=== PATIENT | female | born 1985 | race Caucasian/White ===

== ENCOUNTER 2016-11-29 19:08 | Emergency (ER) | payer MEDICAID ==
[~2016-11-29] VITALS: Ht 157.5 cm; Wt 66.0 kg
[~2016-11-29 19:08] MED LIST: AMOX875T PO
[2016-11-29 19:10] VITALS: BP 101/69; PULSE 87; RESP 16; TEMP 98; O2SAT 100
[2016-11-29 20:39] LABS: BLOOD, URINE NEG (NEG); COMMENT (UR) CULT NOT INDICATED; CULTURE IF INDICATED CULT NOT INDICATED; GLUCOSE,URINE NEG (NEG); HYALINE CAST, URINE 1 /lpf (RARE); KETONE, URINE NEG (NEG); MUCUS URINE FEW /lpf (OCC); NITRITE,URINE NEG (NEG); PH, URINE 5.5 (5.0-8.5); SQUAMOUS EPITHELIAL CELL URINE 12 /hpf (0-5); URINE COLOR YELLOW (YELLW/STRAW)
[2016-11-30] MEDS ORDERED: HYDR-3533 PO (02:32)
== END 2016-11-29 20:30 | disposition left against medical advice (07) ==
LOC: NED 19:08
DX: K46.9 Unspecified abdominal hernia without obstruction or gangrene (principal)
CPT/HCPCS: 81001; 99281

== ENCOUNTER 2016-11-30 02:14 | Emergency (ER) | payer MEDICAID ==
[~2016-11-30] VITALS: Ht 157.5 cm; Wt 65.0 kg
[2016-11-30 02:18] VITALS: BP 110/68; PULSE 97; RESP 16; TEMP 98; O2SAT 99
[2016-11-30] MEDS ORDERED: HYDR-3533 PO (02:32)
--- NOTE | 2016-11-30 02:38 | PD ---
HPI Chief Complaint: Pain: Acute or Chronic Time Seen by Provider: 02:33 Travel History International Travel<30 days: No Contact w/Intl Traveler<30days: No Traveled to known affect area: No History of Present Illness HPI 31-year-old white female presents to emergency department with complaints of pain to her left posterior shoulder after having a skin cancer removed. She states that this was done yesterday. And she was only advised to take ibuprofen. She states the pain is severe. She also goes on the state that she has an umbilical hernia and it also causes pain. She denies any fever or chills. No nausea vomiting. She states that she has not had a change in her appetite. She states that the hernia comes in and out spontaneously. She has not seen her primary care doctor in some time now. [facility] Past Medical History Narrative Medical Umbilical hernia Diminished Hearing: No Hiatal Hernia: Yes Tetanus Vaccination: < 5 Years Influenza Vaccination: No ?: Not LMP: 10/29/2016 : 2 Para: 1 : 1 Past Surgical History Narrative Surgical Excision of skin cancer Other Surgery: Yes (MELENOMA REMOVED LEFT SHOULDER) Social History Alcohol Use: Yes (RARELY) Tobacco Use: Yes (1/3 PPD) Substance Use: No Allergies-Medications (Allergen,Severity, Reaction): Coded Allergies: Black Pepper (Verified Adverse Reaction, Severe, Rash AND VOMITING, 11/30/16 ) Reported Meds & Prescriptions Reported Meds & Active Scripts Active Lortab (Hydrocodone-Acetaminophen) 5-325 Mg Tab 1 Tab PO Q8HR PRN Review of Systems Except as stated in HPI: all other systems reviewed are Neg Physical Exam Narrative GENERAL: Well-developed, well-nourished in no acute distress. Nontoxic appearing. HEAD: Normocephalic, atraumatic. EYES: Pupils equal round and reactive. Extraocular motions intact. No scleral icterus. No injection or drainage. ENT: TMs clear without erythema. The external auditory canals clear. Nose: clear . Posterior pharynx is pink and moist. No tonsillar edema or exudate. Uvula midline. Airway patent. NECK: Trachea midline.Supple, nontender, moves head freely. No central bony tenderness or spasm. CARDIOVASCULAR: Regular rate and rhythm without murmurs, gallops, or rubs. RESPIRATORY: Clear to auscultation. Breath sounds equal bilaterally. No wheezes , rales, or rhonchi. GASTROINTESTINAL: Abdomen soft, non-tender, nondistended. No hepato-splenomegaly , or palpable masses. No guarding. Patient has a small reducible umbilical hernia. EXTREMITIES: No clubbing, cyanosis, or edema. No joint tenderness, effusion, or edema noted. BACK: Nontender without deformity or crepitance. No flank tenderness. Skin: Patient has a healing incision to the left posterior shoulder with sutures intact. There is no erythema, warmth or discharge. No edema. Tender to touch. Data Data Last Documented VS Vital Signs Date Time Temp Pulse Resp B/P Pulse Ox O2 Delivery O2 Flow Rate FiO2 11/30/16 02:18 98.0 97 16 110/68 99 Orders Acetamin-Hydrocod 325-5 Mg ([place] 5-325 (11/30/16 02:45) [facility] Medical Decision Making Medical Screen Exam Complete: Yes Emergency Medical Condition: Yes Medical Record Reviewed: Yes Differential Diagnosis MDM: High Differential diagnoses: Abscess, postop pain, cellulitis, umbilical hernia, inguinal hernia Narrative Course Patient's given Lortab 5 mg by mouth. Patient has a reducible umbilical hernia. Patient has postoperative pain. Her wound looks well. No signs of infection. Diagnosis Primary Impression: Postoperative pain Additional Impression: reducible umbilical hernia Patient Instructions: Narcotic given in the ED, General Instructions Additional Instructions: Rest. Elevation. Lortab for severe pain. Continue 800 mg of ibuprofen 3 times a day. Daily wound care with soap, water, Neosporin. Sutures out in 10 days. Follow-up with your primary care doctor in 1 week. Return to the ER if any problems. Med/Other Pt SpecificInfo: Prescription(s) given Scripts Hydrocodone-Acetaminophen (Lortab)5-325 Mg Tab1 Tab PO Q8HR PRN (PAIN) #6 TAB Prov:Yarelis Falk MD 11/30/16 Disposition: 01 DISCHARGE HOME Condition: Stable Harpal Fong Nov 30, 2016 02:38
[2016-11-30] MEDS ORDERED: ACETAMINOPHEN/HYDROcodone 325 MG/5 MG TAB PO ONE (02:45)
== END 2016-11-30 03:04 | disposition home or self-care (01) ==
LOC: NEPD 02:14
DX: G89.18 Other acute postprocedural pain (principal); K42.9 Umbilical hernia without obstruction or gangrene; Z72.0 Tobacco use
CPT/HCPCS: 99283

== ENCOUNTER 2017-04-03 09:42 | Emergency (ER) | payer MEDICAID ==
[~2017-04-03] VITALS: Ht 157.5 cm; Wt 75.8 kg
[~2017-04-03 09:42] MED LIST changes: -AMOX875T PO; +HYDR-3533 PO
[2017-04-03 09:44] VITALS: BP 117/71; PULSE 100; RESP 18; TEMP 99.1; O2SAT 98
[2017-04-03 10:31] LABS: BLOOD, URINE NEG (NEG); GLUCOSE,URINE NEG (NEG); KETONE, URINE NEG (NEG); NITRITE,URINE NEG (NEG)
[2017-04-03 10:35] LABS: METHOD OF COLLECTION CLEAN CATCH; URINE COLOR YELLOW (YELLW/STRAW)
[2017-04-03 10:36] LABS: COMMENT (UR) CULT NOT INDICATED; CULTURE IF INDICATED CULT NOT INDICATED; SQUAMOUS EPITHELIAL CELL URINE 0-5 /hpf (0-5); WBC, URINE 0-2 /hpf (0-5)
[2017-04-03] MEDS ORDERED: LIDO2GEL11 TOPICAL (10:50)
--- NOTE | 2017-04-03 10:50 | PD ---
HPI Chief Complaint: GI Complaint Time Seen by Provider: 09:47 Travel History International Travel<30 days: No Contact w/Intl Traveler<30days: No Traveled to known affect area: No History of Present Illness HPI Patient is a 31-year-old female presents emergency department 6 months gestational age for evaluation of abdominal pain. The patient states that her hemorrhoid is her main concern. She also endorses some swelling of her legs but denies any headache or visual changes. She is followed by Dr. Dumont. Patient states the pain came on and off for the past few days and her abdomen swells whenever she eats. She denies any vaginal bleeding vaginal discharge loss. She states she is feeling baby move. States the pain is fairly severe in her abdomen but is worse in her rectum. Using Preparation H and taking Tylenol without relief. denies any fever nausea vomiting or diarrhea. PFSH Past Medical History Cancer: Yes (SKIN) Diminished Hearing: No Hiatal Hernia: Yes ?: LMP: 10/2016 : 2 Para: 1 : 1 Past Surgical History Other Surgery: Yes (MELENOMA REMOVED LEFT SHOULDER) Social History Alcohol Use: No Tobacco Use: Yes (06/29 PPD) Substance Use: No Allergies-Medications (Allergen,Severity, Reaction): Coded Allergies: black pepper (Unverified Adverse Reaction, Severe, Rash AND VOMITING, 04/03) Reported Meds & Prescriptions Reported Meds & Active Scripts Active Lidocaine Topical (Lidocaine HCl) 2 % Jel 1 Applic TOPICAL QID Review of Systems Except as stated in HPI: all other systems reviewed are Neg Physical Exam Narrative GENERAL: Well-developed well-nourished no obvious distress SKIN: Focused skin assessment warm/dry. HEAD: Atraumatic. Normocephalic. EYES: Pupils equal and round. No scleral icterus. No injection or drainage. ENT: No nasal bleeding or discharge. Mucous membranes pink and moist. NECK: Trachea midline. No JVD. CARDIOVASCULAR: Regular rate and rhythm. No murmur appreciated. RESPIRATORY: No accessory muscle use. Clear to auscultation. Breath sounds equal bilaterally. GASTROINTESTINAL: Abdomen soft, moderately tender to palpation above the suprapubic area. Small hernia is felt easily reducible and soft., gravid abdomen. Hepatic and splenic margins not palpable. RECTAL: Exam performed with female nurse visual educator present all times. The patient has a grape-sized hemorrhoid in the 3 o'clock position external. Nonthrombosed. MUSCULOSKELETAL: No obvious deformities. No clubbing. No cyanosis. Trace bilateral equal lower extremity edema. NEUROLOGICAL: Awake and alert. No obvious cranial nerve deficits. Motor grossly within normal limits. Normal speech. PSYCHIATRIC: Appropriate mood and affect; insight and judgment normal. Data Data Last Documented VS Vital Signs Date Time Temp Pulse Resp B/P (MAP) Pulse Ox O2 Delivery O2 Flow Rate FiO2 04/03/17 09:44 99.1 100 18 117/71 (86) 98 Orders Orders Urinalysis - C+S If Indicated (04/03/17 10:13) Ed Poc Ultrasound (04/03/17 ) Labs Laboratory Tests Test 04/03/17 10:20 Urine Collection Type CLEAN CATCH Urine Color YELLOW Urine Turbidity CLEAR Urine pH 7.0 Urine Specific [place] 1.017 Urine Protein NEG mg/dL Urine Glucose (UA) NEG mg/dL Urine Ketones NEG mg/dL Urine Occult Blood NEG Urine Nitrite NEG Urine Bilirubin NEG Urine Leukocyte Esterase NEG Urine WBC 0-2 /hpf Urine Squamous Epithelial Cells 0-5 /hpf Urine Amorphous Sediment FEW Microscopic Urinalysis Comment CULT NOT INDICATED MDM Medical Decision Making Medical Screen Exam Complete: Yes Emergency Medical Condition: Yes Differential Diagnosis Abdominal pain and , abruption, intrauterine demise, distress, hemorrhoid, UTI, preeclampsia seems unlikely. Narrative Course Discussed with the patient that hernia is easily reduced, I do not think this is the source of her pain. She's not had any symptoms of obstipation no nausea no vomiting or diarrhea. She's not had any blood in the stool. I discussed with her that at her gestational age out highly recommend an NST to rule out distress and an official ultrasound. She verbalized understanding to the risk to herself and her baby both and and disability. She states that " my baby is fine at all these by baby and all follow-up with my BABY STROLLER RENTAL CLERK tomorrow. " The patient did have unofficial bedside ultrasound performed by me which was reassuring. Still dog mild would suggest the patient needs an NST and this my recommendation. She verbalized understanding again the risks to herself and baby and opted for outpatient follow-up. I have asked her to sign an AGAINST MEDICAL ADVICE documentation as there is significant risk that she was agreeable. Discussed she is invited to return to the emergency department any time or Follow-up with [facility] will be ED. A UA was sent which did not reveal any proteinuria, no hypertensive. Minimal edema was found in her legs. She will be prescribed a prescription for lidocaine jelly, Tylenol as needed. Discussed need follow-up with a heating unit installer and probably a general surgeon after her is concluded. Procedures Procedure Narrative Bedside ultrasound: Transabdominal views were obtained of the patient's uterus showing a single intrauterine between 22-23 weeks by biparietal diameter. Transverse lie, heart tones by M-mode to 154. No gross abnormality seen. Diagnosis Primary Impression: Acute hemorrhoid Additional Impression: Abdominal pain affecting Referrals: Olivia Dumont MD Patient Instructions: Abdominal Pain in (ED), General Instructions, Hemorrhoids (DC) Additional Instructions: Recommend follow-up as soon as possible with [facility] or your BABY STROLLER RENTAL CLERK for consideration of a nonstress test or NST. I cannot provide reassurance is to baby's health nor your health without this test. Med/Other Pt SpecificInfo: Prescription(s) given Scripts Lidocaine Topical (Lidocaine Topical) 2 % Jel 1 APPLIC TOPICAL QID for Pain Management, #1 GM 0 Refills Prov: Demarcus Pearce MD 04/03/17 Disposition: 07 AGAINST MEDICAL ADVICE Condition: Stable Demarcus Pearce MD Apr 03, 2017 10:50
== END 2017-04-03 11:06 | disposition left against medical advice (07) ==
LOC: PHED 09:42
DX: O22.42 Hemorrhoids in pregnancy, second trimester (principal); O26.892 Other specified pregnancy related conditions, second trimester; K46.9 Unspecified abdominal hernia without obstruction or gangrene; R10.9 Unspecified abdominal pain; R60.0 Localized edema; O99.332 Smoking (tobacco) complicating pregnancy, second trimester; Z85.828 Personal history of other malignant neoplasm of skin; Z53.29 Procedure and treatment not carried out because of patient's decision for other reasons; Z3A.22 22 weeks gestation of pregnancy
CPT/HCPCS: 81001; 99283

== ENCOUNTER 2017-04-16 00:52 | Emergency (ER) | payer MEDICAID ==
[~2017-04-16] VITALS: Ht 157.5 cm; Wt 80.0 kg
[~2017-04-16 00:52] MED LIST changes: -HYDR-3533 PO; +LIDO2GEL11 TOPICAL
[2017-04-16 00:54] VITALS: BP 109/74; PULSE 96; RESP 16; TEMP 98.5; O2SAT 98
[2017-04-16] MEDS ORDERED: ZANT150T2 PO (01:04)
[2017-04-16] MEDS ORDERED: SODIUM CHLOR 0.9% 1000 ML INJ 1,000 ML IV ONE (02:15)
--- NOTE | 2017-04-16 02:50 | PD ---
HPI Chief Complaint: Lump, Cyst, Hernia Time Seen by Provider: 01:38 Travel History International Travel<30 days: No Contact w/Intl Traveler<30days: No Traveled to known affect area: No History of Present Illness HPI Patient is a 31-year-old female, 25 weeks , who comes in complaining of pain from her hernia. She has had the hernia since before becoming , but says that she has had a lot of pain from it do to the . She says that nothing is really changed, but her ELECTRONIC COMPONENT PROCESSOR has told her that she needs to keep coming to the emergency department until a surgeon will see her. She denies nausea or vomiting. She is moving her bowels regularly. She has not tried follow-up as an outpatient with a surgeon. PFSH Past Medical History Cancer: Yes (SKIN) Diminished Hearing: No Hiatal Hernia: Yes ?: : 2 Para: 1 : 1 Past Surgical History Other Surgery: Yes (MELENOMA REMOVED LEFT SHOULDER) Social History Alcohol Use: No Tobacco Use: No Substance Use: No Allergies-Medications (Allergen,Severity, Reaction): Coded Allergies: black pepper (Unverified Adverse Reaction, Severe, Rash AND VOMITING, ) Reported Meds & Prescriptions Reported Meds & Active Scripts Active Reported Zantac (Ranitidine HCl) 150 Mg Tab 150 Mg PO BID Review of Systems Except as stated in HPI: all other systems reviewed are Neg General / Constitutional: No: Fever HENT: No: Headaches, Lightheadedness Cardiovascular: No: Chest Pain or Discomfort Respiratory: No: Shortness of Breath Gastrointestinal: Positive: Abdominal Pain, No: Nausea, Vomiting Genitourinary: No: Dysuria Skin: No Rash, No Change in Pigmentation Neurologic: No: Weakness, Dizziness Physical Exam Narrative GENERAL: Awake and alert, in no acute distress. SKIN: Focused skin assessment warm/dry. HEAD: Atraumatic. Normocephalic. EYES: Pupils equal and round. No scleral icterus. ENT: No nasal bleeding or discharge. Mucous membranes pink and moist. NECK: Trachea midline. No JVD. CARDIOVASCULAR: Regular rate and rhythm. No murmur appreciated. RESPIRATORY: No accessory muscle use. Clear to auscultation. Breath sounds equal bilaterally. GASTROINTESTINAL: Abdomen soft, nondistended. Gravid abdomen with umbilical hernia that is soft and easily reducible. Hernia is tender to palpation. MUSCULOSKELETAL: No obvious deformities. No clubbing. No cyanosis. No edema. NEUROLOGICAL: Awake and alert. No obvious cranial nerve deficits. Motor grossly within normal limits. Normal speech. PSYCHIATRIC: Appropriate mood and affect; insight and judgment normal. Data Data Last Documented VS Vital Signs Date Time Temp Pulse Resp B/P (MAP) Pulse Ox O2 Delivery O2 Flow Rate FiO2 04/16/17 03:01 04/16/17 00:54 98.5 96 16 98 Room Air Orders Orders Iv Access Insert/Monitor (04/16/17 02:07) Sodium Chlor 0.9% 1000 Ml Inj (Ns 1000 M (04/16/17 02:15) MDM Medical Decision Making Medical Screen Exam Complete: Yes Emergency Medical Condition: Yes Medical Record Reviewed: Yes Differential Diagnosis Hernia versus chronic pain versus issue Narrative Course Patient is a 31-year-old female comes in because she would like her hernia addressed. I explained to her that she needs follow-up as an outpatient and likely normal do anything until she is not . I explained to her things she needs to watch out for that would make her hernia emergent. Labs were ordered, however she refused any further testing. She left AMA. AMA: The risks of leaving against medical advice without further evaluation treatment were discussed with the patient. These risks include cardiac dysfunction, cardiac dysrhythmia, possible heart attack, possible stroke or . The patient indicated understanding of these risks and appeared to have the capacity to make this decision. Diagnosis Primary Impression: Hernia Patient Instructions: General Instructions Departure Forms: Tests/Procedures Disposition: AGAINST MEDICAL ADVICE Coty Flynn MD Apr 16, 2017 02:50
== END 2017-04-16 03:07 | disposition left against medical advice (07) ==
LOC: NEPE 00:52
DX: O26.92 Pregnancy related conditions, unspecified, second trimester (principal); K42.9 Umbilical hernia without obstruction or gangrene; Z3A.25 25 weeks gestation of pregnancy
CPT/HCPCS: 99281

== ENCOUNTER 2017-06-19 14:46 | Emergency (ER) | payer MEDICAID ==
[~2017-06-19] VITALS: Ht 157.5 cm; Wt 83.5 kg
[~2017-06-19 14:46] MED LIST changes: -LIDO2GEL11 TOPICAL; +ZANT150T2 PO
--- NOTE | 2017-06-19 15:23 | PD ---
HPI Chief Complaint Pelvic pain Travel History International Travel<30 Days: No Contact w/Intl Traveler<30Days: No Known Affected Area: No History of Present Illness HPI 31-year-old 011, IUP at 34.3 care complicated by umbilical hernia The patient presents complaining of the onset of pelvic pain about 2 months ago which worsened over the past 2 weeks. She reports that this has been increased even in the past 1 week. She reports that the sensation like her "pelvic bone is breaking." She feels soreness in her hips also. She reports these pains are worse with walking and better at rest. There are no attempted treatments and she reports that Tylenol does not work for her. She reports good movement. She denies any leaking of fluid or vaginal bleeding. She denies any painful contractions or cramping. Weeks Gestation: 34 Para: 1 : 3 History Past Medical History Narrative Medical Skin cancer Obstetric History Obstetric History 011, SAB 1 Past Surgical History Narrative Surgical Removal of skin cancer Family History Narrative Family History Asthma, DM, HTN, CVA, [place]/CAD, down syndrome, lung cancer, breast cancer Social History Alcohol Use: No Tobacco Use: No Substance Abuse: No Allergies-Medications (Allergen,Severity, Reaction): Coded Allergies: black pepper (Unverified Adverse Reaction, Severe, Rash AND VOMITING, ) Home Meds Reported Medications Ranitidine (Zantac) 150 Mg Tab, 150 MG PO BID for Reduce Stomach Acid, #60 TAB 0 Refills 04/16/17 Review of Systems Except as stated in HPI: all other systems reviewed are Neg Musculoskeletal: Pain, Other (As per HPI) Physical Exam Narrative GENERAL: Well-nourished, well-developed patient. SKIN: Warm and dry. HEAD: Normocephalic and atraumatic. EYES: No scleral icterus. No injection or drainage. ENT: No nasal drainage noted. Mucous membranes pink. Airway patent. NECK: Supple, trachea midline. No JVD. CARDIOVASCULAR: Regular rate and rhythm without murmurs, gallops, or rubs. RESPIRATORY: Breath sounds equal bilaterally. No accessory muscle use. BREASTS: Deferred ABDOMEN/GI: Abdomen soft, non-tender, bowel sounds present, no rebound, no guarding Gravid GENITOURINARY: External Genitalia: intact and normal in appearance. Normal BUS glands. No cervical or vaginal masses appreciated. Physiologic discharge. Grossly normal rugae. SVE closed/thick/high/posterior FHT's: heart tones are in the 140s with moderate long-term variability, good accelerations, no decelerations. This is a category 1 heart rate tracing and a reactive NST EXTREMITIES: No cyanosis or edema. BACK: Nontender without obvious deformity. No CVA tenderness. NEUROLOGICAL: Awake and alert. Motor and sensory grossly within normal limits. Five out of 5 muscle strength in all muscle groups. Normal speech. Psychiatric: Grossly normal memory and affect Musculoskeletal: Grossly normal range of motion, gait, muscle strength. No discrete tenderness over the pubic symphysis. MDM Narrative Course / MDM Assessment/plan: 1. IUP at 34.3 2. 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 Comfort measures were recommended as well as was a /pelvic girdle to provide additional support. Recommended patient discussed this further with her primary OB for possible additional treatment options. 3. Umbilical hernia: Patient plans to have this repaired 4. well-being: Reassuring testing with category 1 heart rate tracing and reactive NST 5. Follow primary OB in 2-3 days or sooner if needed Diagnosis Diagnosis: Primary Impression: 34 weeks gestation of Additional Impression: Pelvic pain affecting in third trimester, antepartum Disposition: 01 DISCHARGE HOME Condition: Jennifer Marin MD Jun 19, 2017 15:23
== END 2017-06-19 16:32 | disposition home or self-care (01) ==
LOC: HOBED 14:46
DX: O26.893 Other specified pregnancy related conditions, third trimester (principal); R10.2 Pelvic and perineal pain; Z3A.34 34 weeks gestation of pregnancy
CPT/HCPCS: 59025

== ENCOUNTER 2017-07-21 19:30 | Emergency (ER) | payer MEDICAID ==
--- NOTE | 2017-07-21 21:14 | PD ---
HPI Chief Complaint contractions Date Seen: Jul 21, 2017 Travel History International Travel<30 Days: No Contact w/Intl Traveler<30Days: No History of Present Illness HPI Ms. Olivia is a [address] Mejia at 39 weeks GA (BARBRA 2017) who presents with complaint of contractions. Patient reports that she was having some intermittent abdominal abdominal pain intermittently for weeks, but then reports losing her mucus plug today. Since loss of mucus plug, patient reports having increased pain with contractions and frequency of contractions. Patient reports normal movement. Patient does not report any vaginal bleeding or concern for rupture of membranes. Patient does not report headache, vision changes, shortness of breath, nausea/vomiting, dysuria, or leg swelling. patient reports pelvic pain during which was attributed to symphysis pubis dysfunction. records reviewed: Patient O-; received Rhogam. GBS-. Patient does not report any elevated BP or blood glucose levels during . Weeks Gestation: 39 Para: 1 : 3 History Past Medical History Medical History: Denies Significant Hx Obstetric History Obstetric History prior full term vaginal delivery Past Surgical History Narrative Surgical unspecified skin cancer removal- melanoma precursor? Family History Narrative Family History DM COPD Lung cancer Breast cancer drug abuse alcohol abuse son with Down Syndrome Social History Alcohol Use: No Tobacco Use: No Substance Abuse: No Allergies-Medications (Allergen,Severity, Reaction): Coded Allergies: black pepper (Unverified Adverse Reaction, Severe, Rash AND VOMITING, ) Home Meds Reported Medications Ranitidine (Zantac) 150 Mg Tab, 150 MG PO BID for Reduce Stomach Acid, #60 TAB 0 Refills 04/16/17 Review of Systems General / Constitutional: No: Fever Eyes: No: Diploplia HENT: No: Headaches Cardiovascular: No: Chest Pain or Discomfort Respiratory: No: Short of Breath Gastrointestinal: Abdominal Pain Genitourinary: No: Urgency, Dysuria Skin: No Rash, No Dryness Neurologic: No: Weakness Psychiatric: No: Anxiety Physical Exam T 98.1 BP 103/70 HR 116 Narrative GENERAL: Well-nourished, well-developed patient. SKIN: Warm and dry. HEAD: Normocephalic and atraumatic. EYES: No scleral icterus. No injection or drainage. ENT: No nasal drainage noted. Mucous membranes pink. Airway patent. CARDIOVASCULAR: Regular rate and rhythm without murmurs RESPIRATORY: CTAB; normal rate ABDOMEN/GI: Abdomen soft, non-tender, bowel sounds present, no rebound, no guarding Gravid EXTREMITIES: No cyanosis or edema. BACK: Nontender without obvious deformity. No CVA tenderness. NEUROLOGICAL: Awake and alert. Motor and sensory function grossly within normal limits. GENITOURINARY: External Genitalia: intact and normal in appearance Cervix: Dilatation: 0 Effacement: 0% Station: -3 Presentation: Vertex Membranes: Intact Uterine Contractions: q3-4 min FHT's: Category: 1 - parts with pseudosinusoidal pattern but otherwise normal; no decels with contractions; reassuring Baseline: 150 Reactive: Y Variability: Mod Decels: None Data Data Vital Signs Reviewed: Yes Group B Strep: Negative MDM Medical Record Reviewed: Yes Narrative Course / MDM Ms. Olivia is a [address] Mejia at 39 weeks GA (BARBRA 2017) who presents with complaint of contractions. -Cat 1 rhythm -Contractions q4 min -Cervix closed -GBS- Plan: -Patient monitored on EFM/CTG -Dipstick UA reassuring Interval: -Reassuring rhythm x1 hr Updated Plan: -Discussed with patient that due to her closed cervix and reassuring rhythm, patient deemed stable to return home and hydrate. Patient will return to OB ED with increasing pain with contractions and frequency of contractions, concern for vaginal bleeding or ROM, or any concerns Diagnosis Diagnosis: Primary Impression: 39 weeks gestation of Additional Impression: Abdominal pain affecting Disposition: 01 DISCHARGE HOME Condition: Stable Patient Instructions: Abdominal Pain in (ED), General Instructions, Movement (ED) David Alarcon MD, R3 Jul 21, 2017 21:14
--- NOTE | 2017-07-27 13:29 | MH ---
cc: OLIVIA STOUT DATE OF ADMISSION 07/21/2017 DATE OF 1985 INDICATIONS Plan is for induction with Cervidil tonight at 08:00 p.m. INDICATIONS A 5 cm DO term , decreased movement with an unfavorable cervix. HISTORY OF PRESENT CONDITION Heather is a very pleasant 31-year-old single white female 3, para 1-0-1-1 with LMP 10/29 and EDC July 28 by 11-week ultrasound currently at 39-6/7. Her care has been with different physicians at [facility] and has been without labor, gestational diabetes or hypertensive disease. Her first term was in 2004 and she delivered vaginally an 8-1/2 pound boy who is a high-functioning trisomy 21. Her blood type is O negative. Her hemoglobin was 11.5. Her Pap smear is normal. She is immune to [place] measles. Her cultures were all negative and was normal. Hep-C was negative. She did have an elevated Glucola, but the three hour glucose tolerance test was negative and a group B strep is negative. Her general health is good with no chronic or systemic illness. She does not smoke, drink or use illicit drugs on evaluation today. PHYSICAL EXAM She was normotensive at was 124/78 and her weight was stable and her normal. BIOPHYSICAL PROFILE: Normal except for DO of 5, so we are calling this oligohydramnios. PELVIC: Her cervix is not very favorable. Her Gomez score is 5, 1 for dilation in mid position, 30% effaced, -1 station and medium in consistency. Estimated weight is 7-1/2 pounds. Pelvis is clinically adequate. LUNGS: Her lungs are clear. HEART: Her heart is regular. The remainder exam is as described. IMPRESSION Term intrauterine with oligohydramnios, pelvis previously proved a 8+ pounds. Cervix is not yet favorable for cervical ripening. The risks, benefits, expectations, alternatives including waiting have been described in detail and she prefers to scheduled for Cervidil tonight. Olivia Stout MD PPC/CARMINA /12:52 PM /12:58 PM
== END 2017-07-21 22:10 | disposition home or self-care (01) ==
LOC: HOBED 19:30
DX: O26.893 Other specified pregnancy related conditions, third trimester (principal); R10.9 Unspecified abdominal pain; Z3A.39 39 weeks gestation of pregnancy
CPT/HCPCS: 59025

== ENCOUNTER 2017-07-27 19:56 | Inpatient (IN) | payer MEDICAID ==
[~2017-07-27] VITALS: Ht 157.5 cm; Wt 87.0 kg
[2017-07-27] VITALS (7 sets, daily range): BP systolic 109; BP diastolic 66; PULSE 115; RESP 18; TEMP 98.5
[2017-07-27] MEDS ORDERED: ONDANSETRON HCL 4 MG/2 ML VIAL IV PUSH PRN (20:30)
[2017-07-27] MEDS: LACTATED RINGER'S 1000 ML IV SCH ×2 (20:30→21:36)
[2017-07-27] MEDS ORDERED: OXYTOCIN 30 UNITS 500ML PREMIX IV ONE (20:30)
[2017-07-27] MEDS ORDERED: MINERAL OIL 10 ML VIAL TOPICAL PRN (20:30)
[2017-07-27] MEDS ORDERED: LACTATED RINGER'S 1000 ML BOLUS IV PRN (20:30)
[2017-07-27] MEDS ORDERED: LIDOCAINE HCL 1% 50 ML VIAL INFIL PRN (20:30)
[2017-07-27] MEDS ORDERED: NS 500 ML BOLUS IV PRN (20:30)
[2017-07-27] MEDS ORDERED: CITRIC ACID-SODIUM CITRATE LIQ 30 ML UDC PO SCH (20:30)
[2017-07-27] MEDS ORDERED: NS 1000 ML IV PRN (20:30)
[2017-07-27] MEDS ORDERED: LIDOCAINE HCL 1% 50 ML VIAL I-DERMAL PRN (20:30)
[2017-07-27] MEDS ORDERED: DINOPROSTONE 10 MG INSERT - REMOVE AT 0600 VAGINAL ONE (20:30)
[2017-07-27 21:35] LABS: BASOPHIL % 0.3 % (0.0-2.0); EOSINOPHIL # 0.3 TH/MM3 (0-0.4); EOSINOPHIL % 2.2 % (0.0-4.0); HEMATOCRIT 33.3 % (35.0-46.0); HEMOGLOBIN 11.7 GM/DL (11.6-15.3); LYMPH % 18.7 % (9.0-44.0); LYMPHOCYTE # 2.6 TH/MM3 (1.0-4.8); MEAN CORPUSCULAR HEMOGLOBIN 31.2 PG (27.0-34.0); MEAN CORPUSCULAR HGB CONC 35.1 % (32.0-36.0); MONO % 7.9 % (0.0-8.0); MONOCYTE # 1.1 TH/MM3 (0-0.9); NEUT % 70.9 % (16.0-70.0); PLATELET COUNT 233 TH/MM3 (150-450); RED BLOOD COUNT 3.74 MIL/MM3 (4.00-5.30); RED CELL DISTRIBUTION WIDTH 14.7 % (11.6-17.2); WHITE BLOOD COUNT 14.1 TH/MM3 (4.0-11.0)
[2017-07-27 21:45] LABS: BACTERIA, URINE RARE /hpf; BILIRUBIN, URINE NEG (NEG); BLOOD, URINE NEG (NEG); GLUCOSE,URINE NEG (NEG); KETONE, URINE TRACE mg/dL (NEG); MUCUS URINE FEW /lpf (OCC); NITRITE,URINE NEG (NEG); PH, URINE 6.5 (5.0-8.5); SQUAMOUS EPITHELIAL CELL URINE 8 /hpf (0-5); URINE COLOR YELLOW (YELLW/STRAW); URINE LEUKOCYTE ESTERASE TRACE (NEG)
[2017-07-27 22:08] LABS: BANDS 9 % (0-6); BASOPHILS 1 % (0-2); LYMPHOCYTES 11 % (9-44); MONOCYTES 6 % (0-8); MYELOCYTES 1 % (0-0); NEUTROPHIL # MANUAL DIFF 11.3 TH/MM3 (1.8-7.7); POLYS (SEG NEUTROPHILS) 70 % (16-70)
[2017-07-28] VITALS (46 sets, daily range): BP systolic 102–121; BP diastolic 65–86; PULSE 18–114; RESP 18–20; TEMP 97.6–98.8
[2017-07-28] MEDS ORDERED: OXYTOCIN 10 UNIT/ML AMP ONE (05:22)
[2017-07-28] MEDS ORDERED: LIDOCAINE HCL 1% 20 ML VIAL ONE (05:25)
[2017-07-28] MEDS ORDERED: OXYTOCIN 30 UNITS/NS 500ML PREMIX IV PRN (09:15)
--- NOTE | 2017-07-28 12:25 | PD.LABORPN ---
Subjective Subjective H & P dictated 32 yo swf at 40 weeks today with cervidil last evening for oligohydramnios. No UCs during night, and no cervical change from Bishops score of 5 yesterday. Unable to perform AROM. Not roselyn on pitocin so far. Has not been walking or using birthing ball. Strip reactive but tachycardic after attempted AROM Objective Vital Signs Vital Signs Date Time Temp Pulse Resp B/P (MAP) Pulse Ox O2 Delivery O2 Flow Rate FiO2 07/28/17 10:55 20 07/28/17 10:30 98 114/72 (86) 07/28/17 10:06 93 107/70 (82) 07/28/17 09:30 20 07/28/17 09:30 91 114/72 (86) 07/28/17 09:18 91 103/65 (78) 07/28/17 08:15 97.8 20 07/28/17 08:05 92 106/69 (81) 07/28/17 06:31 18 07/28/17 06:15 18 07/28/17 05:39 18 07/28/17 05:15 18 07/28/17 04:45 18 Objective 1cm/10%/ -3 posterior to the patient's left proven pelvis with easy labor at 39 weeks -- this child has Down's Weeks Gestation: 40 Gest Age Assessed Date: Jul 28, 2017 Gest Age Assessed Time: 12:23 Pt started active labor?: No Medical induction of labor?: Yes Medical induction start date: Jul 28, 2017 Medical induction start time: 12:23 Artificial rupture of membrane: No Assessment/Plan Problem List: (1) Oligohydramnios ICD Codes: O41.00X0 - Oligohydramnios, unspecified trimester, not applicable or unspecified (2) Term ICD Codes: Z34.80 - Encounter for supervision of other normal , unspecified trimester Assessment and Plan birthing ball and attempt arom again soon pitocin for now if no active labor cytotec tonight anticipate Olivia Rice MD Jul 28, 2017 12:25
[2017-07-28] MEDS ORDERED: MAGNESIUM HYDROXIDE SUSP 30 ML CUP PO PRN (12:30)
[2017-07-28] MEDS: LACTATED RINGER'S 1000 ML IV SCH (12:30)
--- NOTE | 2017-07-28 17:24 | PD.LABORPN ---
Subjective Subjective becoming more uncomfortable Objective Vital Signs Vital Signs Date Time Temp Pulse Resp B/P (MAP) Pulse Ox O2 Delivery O2 Flow Rate FiO2 07/28/17 16:52 20 07/28/17 16:50 95 109/71 (84) 07/28/17 16:00 82 111/73 (86) 07/28/17 15:58 97.6 20 07/28/17 15:30 89 110/77 (88) 07/28/17 15:10 98.8 20 07/28/17 15:03 90 120/74 (89) 07/28/17 14:31 93 118/67 (84) 07/28/17 14:00 104 121/86 (98) 07/28/17 13:39 103 20 110/81 (91) 07/28/17 13:00 89 116/77 (90) 07/28/17 12:30 98 116/76 (89) 07/28/17 12:19 20 07/28/17 12:08 114 121/72 (88) 07/28/17 10:55 20 07/28/17 10:30 98 114/72 (86) 07/28/17 10:06 93 107/70 (82) 07/28/17 09:30 20 07/28/17 09:30 91 114/72 (86) Objective 2/70%/-2 still posterior and deviated to patient left arom clear on 18 mu/min pit Weeks Gestation: 40 Gest Age Assessed Date: Jul 28, 2017 Gest Age Assessed Time: 17:23 Pt started active labor?: Yes Active labor start date: Jul 28, 2017 Active labor start time: 17:23 Medical induction of labor?: Yes Medical induction start date: Jul 28, 2017 Medical induction start time: 12:23 Artificial rupture of membrane: No Artificial ROM date: Jul 28, 2017 Artifical ROM time: 17:23 Assessment/Plan Problem List: (1) Oligohydramnios ICD Codes: O41.00X0 - Oligohydramnios, unspecified trimester, not applicable or unspecified (2) Term ICD Codes: Z34.80 - Encounter for supervision of other normal , unspecified trimester Assessment and Plan induced for oligo at 40 weeks arom clear roselyn epidural prn anticipate Olivia Chiu MD Jul 28, 2017 17:24
--- NOTE | 2017-07-28 20:30 | PD.LABORPN ---
Subjective Subjective fentanyl adequate so far Objective Vital Signs Vital Signs Date Time Temp Pulse Resp B/P (MAP) Pulse Ox O2 Delivery O2 Flow Rate FiO2 07/28/17 20:20 20 07/28/17 20:19 105 112/78 (89) 07/28/17 19:30 107 110/72 (85) 07/28/17 19:13 18 07/28/17 19:00 95 109/72 (84) 07/28/17 18:41 104 107/68 (81) 07/28/17 18:00 100 102/70 (81) 07/28/17 17:30 97 105/80 (88) 07/28/17 17:00 86 109/74 (86) 07/28/17 16:52 20 07/28/17 16:50 95 109/71 (84) 07/28/17 16:00 82 111/73 (86) 07/28/17 15:58 97.6 20 07/28/17 15:30 89 110/77 (88) 07/28/17 15:10 98.8 20 07/28/17 15:03 90 120/74 (89) 07/28/17 14:31 93 118/67 (84) 07/28/17 14:00 104 121/86 (98) 07/28/17 13:39 103 20 110/81 (91) 07/28/17 13:00 89 116/77 (90) 07/28/17 12:30 98 116/76 (89) Objective per RN she is basically unchanged UC's every 2 minutes and palpate strong. category one strip Weeks Gestation: 40 Gest Age Assessed Date: Jul 28, 2017 Gest Age Assessed Time: 20:29 Pt started active labor?: Yes Active labor start date: Jul 28, 2017 Active labor start time: 17:23 Medical induction of labor?: Yes Medical induction start date: Jul 28, 2017 Medical induction start time: 12:23 Artificial rupture of membrane: No Artificial ROM date: Jul 28, 2017 Artifical ROM time: 17:23 Assessment/Plan Problem List: (1) Oligohydramnios ICD Codes: O41.00X0 - Oligohydramnios, unspecified trimester, not applicable or unspecified (2) Term ICD Codes: Z34.80 - Encounter for supervision of other normal , unspecified trimester Assessment and Plan will stop pitocin and allow shower and then resume at 2 mu/min still anticipate Olivia Dumont MD Jul 28, 2017 20:30
[2017-07-29] VITALS (59 sets, daily range): BP systolic 78–117; BP diastolic 48–89; PULSE 87–137; RESP 15–20; TEMP 97.9–102; O2SAT 97–98
[2017-07-29] MEDS ORDERED: fentaNYL 2MCG-BUPIV 0.125% INJ 100 ML ONE (00:49)
[2017-07-29] MEDS: LACTATED RINGER'S 1000 ML IV SCH ×3 (01:20→12:30)
[2017-07-29] MEDS ORDERED: NO SYSTEM NARCOTICS PRN (02:00)
[2017-07-29] MEDS ORDERED: DO NOT ADMINISTER ANTICOAGULANTS PRN (02:00)
[2017-07-29] MEDS ORDERED: ePHEDrine/NS 25 MG/5 ML SYRINGE IV PUSH PRN (02:00)
[2017-07-29] MEDS: ceFAZolin 2 GM PREMIX 50 ML IV SCH ×3 (07:15→22:12)
[2017-07-29] MEDS ORDERED: ACETAMINOPHEN 325 MG TAB PO PRN ×2 (07:30→15:00)
[2017-07-29] MEDS: fentaNYL 2MCG-BUPIV 0.125% 100 ML EPIDURAL SCH ×2 (08:13→15:54)
--- NOTE | 2017-07-29 10:41 | PD.LABORPN ---
Subjective Subjective tachycardia noted mom had low grade fever at 7 and was started on ancef and given po tylenol. now 102. BTBV is diminishing but cervix now 6 cm /90/-1 UCs appear adequate and clinical change noted. Objective Vital Signs Vital Signs Date Time Temp Pulse Resp B/P (MAP) Pulse Ox O2 Delivery O2 Flow Rate FiO2 07/29/17 10:04 100.6 18 07/29/17 10:04 102.0 07/29/17 10:00 109 113/66 (82) 07/29/17 09:30 107 106/65 (79) 07/29/17 09:00 105 106/67 (80) 07/29/17 09:00 100.9 07/29/17 08:38 18 07/29/17 08:30 114 103/70 (81) 07/29/17 08:08 18 07/29/17 08:08 99.4 07/29/17 08:00 106 107/69 (82) 07/29/17 07:40 18 07/29/17 07:30 100.5 07/29/17 07:30 102 107/73 (84) 07/29/17 07:30 18 07/29/17 07:00 93 101/71 (81) 07/29/17 06:30 99/77 (84) 07/29/17 06:08 99.0 07/29/17 06:00 88 16 89/49 (62) 07/29/17 05:30 91 102/67 (79) 07/29/17 05:00 87 90/51 (64) 07/29/17 04:33 16 07/29/17 04:30 95/57 (70) 07/29/17 04:30 87 07/29/17 04:00 92 16 07/29/17 04:00 115/68 (84) 07/29/17 03:45 92 07/29/17 03:45 107/70 (82) 07/29/17 03:30 102/63 (76) 07/29/17 03:15 97 07/29/17 03:15 97/62 (74) 07/29/17 03:00 16 07/29/17 03:00 98.5 07/29/17 03:00 102/73 (83) 07/29/17 02:45 93/64 (74) 07/29/17 02:45 96 Objective Pelvic Exam: Cervix: [-] Dilatation: [-] Effacement: [-] Station: [-] Presentation: [-] Membranes: [intact or ruptured] Uterine Contractions: [-] FHT's: Category: [-] Baseline: [-] Reactive: [-] Variability: [-] Decels: [-] Weeks Gestation: 40 Gest Age Assessed Date: Jul 28, 2017 Gest Age Assessed Time: 20:29 Pt started active labor?: Yes Active labor start date: Jul 28, 2017 Active labor start time: 17:23 Medical induction of labor?: Yes Medical induction start date: Jul 28, 2017 Medical induction start time: 12:23 Artificial rupture of membrane: No Artificial ROM date: Jul 28, 2017 Artifical ROM time: 17:23 Assessment/Plan Problem List: (1) Oligohydramnios ICD Codes: O41.00X0 - Oligohydramnios, unspecified trimester, not applicable or unspecified (2) Term ICD Codes: Z34.80 - Encounter for supervision of other normal , unspecified trimester Assessment and Plan ofirmev and close monitoring. She has had one baby rapidly. New guidelines encourage vaginal delivery with chorioamniitis as long as strip reassuring. With BTBV diminishing will need to reassess post ofirmev and decide if to expedite with section. Patient aware and agrees with plan. Also discussed with ob hospitalist Olivia Dumont MD Jul 29, 2017 10:41
[2017-07-29] MEDS ORDERED: ACETAMINOPHEN 1000 MG/100 ML 100 ML IV ONE ×2 (11:00→20:15)
[2017-07-29] MEDS ORDERED: ONDANSETRON HCL 4 MG/2 ML VIAL IV ONE (12:00)
[2017-07-29] MEDS ORDERED: OXYTOCIN 10 UNIT/ML AMP IV ONE (12:00)
[2017-07-29] MEDS ORDERED: DEXAMETHASONE SOD PHOS 4 MG/ML VIAL IV ONE (12:00)
[2017-07-29] MEDS ORDERED: LACTATED RINGER'S 1000 ML INJ 1,000 ML IV ONE (12:00)
[2017-07-29] MEDS ORDERED: PHENYLEPH/NS 1000 MCG/10 ML SYR IV ONE (12:00)
[2017-07-29] MEDS ORDERED: LIDOCAINE 2%/EPINEPHrine PF 1:200,000 20ML SDV OTHER ONE (12:00)
--- NOTE | 2017-07-29 12:55 | PD.LABORPN ---
Subjective Subjective feels better since ofirmev has mild rectal pressure Objective Vital Signs Vital Signs Date Time Temp Pulse Resp B/P (MAP) Pulse Ox O2 Delivery O2 Flow Rate FiO2 07/29/17 12:29 100.2 07/29/17 12:15 18 07/29/17 12:00 123 97/58 (71) 07/29/17 11:43 20 07/29/17 11:42 100.3 07/29/17 11:30 131 99/60 (73) 07/29/17 11:02 100.5 20 07/29/17 11:00 116 97/48 (64) 07/29/17 10:30 121 107/67 (80) 07/29/17 10:04 100.6 18 07/29/17 10:04 102.0 07/29/17 10:00 109 113/66 (82) 07/29/17 09:30 107 106/65 (79) 07/29/17 09:00 105 106/67 (80) 07/29/17 09:00 100.9 07/29/17 08:38 18 07/29/17 08:30 114 103/70 (81) 07/29/17 08:08 18 07/29/17 08:08 99.4 07/29/17 08:00 106 107/69 (82) 07/29/17 07:40 18 07/29/17 07:30 100.5 07/29/17 07:30 102 107/73 (84) 07/29/17 07:30 18 07/29/17 07:00 93 101/71 (81) 07/29/17 06:30 99/77 (84) 07/29/17 06:08 99.0 07/29/17 06:00 88 16 89/49 (62) 07/29/17 05:30 91 102/67 (79) 07/29/17 05:00 87 90/51 (64) Objective 8-9/75%/-1 not well applied OP has asynclitic bump strip tachycardia in 180's with good accels but diminished BTBV Weeks Gestation: 40 Gest Age Assessed Date: Jul 28, 2017 Gest Age Assessed Time: 12:52 Pt started active labor?: Yes Active labor start date: Jul 28, 2017 Active labor start time: 17:23 Medical induction of labor?: Yes Medical induction start date: Jul 28, 2017 Medical induction start time: 12:23 Artificial rupture of membrane: No Artificial ROM date: Jul 28, 2017 Artifical ROM time: 17:23 Assessment/Plan Problem List: (1) Oligohydramnios ICD Codes: O41.00X0 - Oligohydramnios, unspecified trimester, not applicable or unspecified (2) Term ICD Codes: Z34.80 - Encounter for supervision of other normal , unspecified trimester Assessment and Plan multip at 40 weeks with oligo and cervical ripening/induction that has not adequately progressed. Mom febrile after 18 hours AROM and baby tachycardic. Did progress from long/1/posterior last night to 4cm at 7am to 8-9 in last two hours but no descent. perhaps short cord or nuchal cord or other impediment to descent. Not comfortable with continued labor. At risk fo endometriitis and PPH. C section discussed with patient. She agrees. pitocin turned off. Olivia Dumont MD Jul 29, 2017 12:55
[2017-07-29] MEDS ORDERED: CARBOPROST TROMETHAMINE 250 MCG/ML VIAL ONE (14:23)
--- NOTE | 2017-07-29 14:58 | PD.OB.DELI ---
Procedure Note Section Procedure Pre Op Diagnosis: (1) Failure to progress in labor (2) Maternal fever affecting labor (3) Term (4) Oligohydramnios Post Op Diagnosis: (1) Direct occiput posterior presentation of fetus Performed by Olivia Dumont Procedure: Primary Low Transverse Sec Indication for delivery: Nonreassuring heart tracing, malposition Informed consent obtained: For anesthesia, For procedure Confirmed correct: Patient, Procedure, Site, Time-out taken Anesthesia: Epidural Medication prior to procedure: As documented in eMAR Monitoring during procedure: Blood pressure monitoring, threat monitoring analyst, doppler Urinary catheter: Inserted using sterile technique, To dependent drainage Sterile preparation: Duraprep, In usual fashion Position: Supine with wedge to right side Operative Features Skin Incision: Pfannenstiel Uterine Incision: Low transverse w/knife / blunt ext Membranes Ruptured: Artificially, Previously Presentation: Occiput posterior Delivery date: Jul 29, 2017 Delivery time: 14:57 Delivery of : Uneventful : Female One Minute : 8 Five Minute : 9 Weight: 8 Status of : Viable, Cord blood, Umbilical cord, Nursery present Placenta delivered: Intact Medications: Antibiotics, Prostaglandins Estimated blood loss: 800 Procedure tolerated: Well Maternal Complications: Fever Maternal Condition: Stable (cord pH 7.24), Serious (cord pH 7.24; mild PPH due to fever and prolonged oxytocin) Condition: Stable Olivia Dumont MD Jul 29, 2017 14:58
[2017-07-29] MEDS ORDERED: SODIUM CHLORIDE 0.9% FLUSH 10 ML FLUSH IV FLUSH PRN (15:00)
[2017-07-29] MEDS ORDERED: ONDANSETRON HCL 4 MG/2 ML VIAL IV PUSH PRN (15:00)
[2017-07-29] MEDS ORDERED: SIMETHICONE 80 MG CHEWABLE TAB PO PRN (15:00)
[2017-07-29] MEDS ORDERED: OXYTOCIN 30 UNITS-500ML PREMIX 500 ML IV ONE (15:00)
[2017-07-29] MEDS ORDERED: DOCUSATE SODIUM 50 MG/SENNA 8.6 MG TAB PO PRN (15:00)
--- NOTE | 2017-07-29 15:06 | HHI.DCPOC ---
Discharge Care Plan Report Symptoms to Your Doctor -Temperature above 100.5 degrees -Redness, of incision or excessive or foul smelling drainage -Unusual pain or calf pain -Increased vaginal bleeding -Painful or difficulty urinating -Feelings of extreme sadness or anxiety after 2 weeks Goals to Promote Your Health * To prevent worsening of your condition and complications * To maintain your health at the optimal level Directions to Meet Your Goals Take your medications as prescribed Follow your dietary instruction Follow activity as directed Ensure plenty of rest for recovery Drink fluids for hydration Keep your appointments as scheduled Take your immunizations and boosters as scheduled If your symptoms worsen call your PCP, if no PCP go to Urgent Care Center or Emergency Room Smoking is Dangerous to Your Health. Avoid second hand smoke Call the 24-hour crisis hotline for domestic abuse at Olivia Dumont MD Jul 29, 2017 15:06
[2017-07-29] MEDS ORDERED: PHENYLEPHRINE HCL 10 MG/ML VIAL ONE (15:30)
[2017-07-29] MEDS ORDERED: KETOROLAC TROMETHAMINE 30 MG/ML (IVP) VIAL ONE (15:35)
[2017-07-29] MEDS ORDERED: OXYTOCIN 30 UNITS-500ML PREMIX 500 ML ONE (16:14)
[2017-07-29] MEDS ORDERED: LACTATED RINGER'S 1000 ML INJ 1,000 ML IV SCH (19:58)
[2017-07-29] MEDS ORDERED: KETOROLAC TROMETHAMINE 60 MG/2 ML (IM) VIAL IM ONE (20:07)
[2017-07-29] MEDS ORDERED: KETOROLAC TROMETHAMINE 30 MG/ML (IVP) VIAL IV PUSH ONE (20:15)
[2017-07-29] MEDS: oxyCODONE/ACETAMINOPHEN 5 MG/325 MG TAB PO PRN (22:11)
[2017-07-29] MEDS: ZOLPIDEM TARTRATE 5 MG TAB PO PRN (23:02)
[2017-07-30] MEDS ORDERED: OXYTOCIN 30 UNITS-500ML PREMIX 500 ML IV PRN (01:00)
[2017-07-30] MEDS: oxyCODONE/ACETAMINOPHEN 5 MG/325 MG TAB PO PRN ×6 (01:59→23:35)
[2017-07-30 02:00] VITALS: BP 93/66; PULSE 113; RESP 16; TEMP 98.2; O2SAT 100
[2017-07-30] MEDS: IBUPROFEN 600 MG TAB PO PRN ×4 (02:00→21:31)
[2017-07-30 05:00] VITALS: BP 92/63; PULSE 109; RESP 16; TEMP 98.5
[2017-07-30 05:17] LABS: BASOPHIL % 0.2 % (0.0-2.0); EOSINOPHIL # 0.1 TH/MM3 (0-0.4); EOSINOPHIL % 0.5 % (0.0-4.0); HEMATOCRIT 23.8 % (35.0-46.0); HEMOGLOBIN 8.3 GM/DL (11.6-15.3); LYMPH % 13.5 % (9.0-44.0); LYMPHOCYTE # 2.5 TH/MM3 (1.0-4.8); MEAN CELL VOLUME 89.4 FL (80.0-100.0); MEAN CORPUSCULAR HEMOGLOBIN 31.1 PG (27.0-34.0); MEAN CORPUSCULAR HGB CONC 34.8 % (32.0-36.0); MEAN PLATELET VOLUME 8.5 FL (7.0-11.0); MONO % 8.6 % (0.0-8.0); MONOCYTE # 1.6 TH/MM3 (0-0.9); NEUT % 77.2 % (16.0-70.0); PLATELET COUNT 182 TH/MM3 (150-450); RED BLOOD COUNT 2.66 MIL/MM3 (4.00-5.30); RED CELL DISTRIBUTION WIDTH 14.8 % (11.6-17.2); WHITE BLOOD COUNT 18.1 TH/MM3 (4.0-11.0)
[2017-07-30] MEDS: ceFAZolin 2 GM PREMIX 50 ML IV SCH ×3 (06:08→23:35)
[2017-07-30 08:00] VITALS: BP 92/63; PULSE 112; RESP 18; TEMP 98.2
--- NOTE | 2017-07-30 09:44 | HHI.OB ---
Subjective Post Operative Day: 1 Remarks s/p primary LTCD for arrest of labor Objective Vitals/I&O Vital Signs Date Time Temp Pulse Resp B/P (MAP) Pulse Ox O2 Delivery O2 Flow Rate FiO2 07/30/17 08:00 98.2 112 18 92/63 (73) 07/30/17 05:00 109 92/63 (73) 07/30/17 05:00 98.5 16 07/30/17 02:00 98.2 100 07/30/17 02:00 113 16 93/66 (75) 07/29/17 20:56 98 07/29/17 20:21 97.9 112 18 07/29/17 20:21 103/63 (76) 07/29/17 16:15 98 07/29/17 16:15 94/55 (68) 07/29/17 16:00 103 15 98 07/29/17 16:00 93/55 (68) 07/29/17 15:48 109 16 84/51 (62) 07/29/17 15:40 97 07/29/17 15:40 104 15 97/54 (68) 07/29/17 15:30 119 18 78/48 (58) 97 07/29/17 15:15 127 20 89/51 (64) 07/29/17 15:15 97 07/29/17 15:00 100.1 97 07/29/17 15:00 137 19 117/89 (98) 07/29/17 13:30 115 101/61 (74) 07/29/17 13:00 133 94/57 (69) 07/29/17 12:30 126 101/56 (71) 07/29/17 12:29 100.2 07/29/17 12:15 18 07/29/17 12:00 123 97/58 (71) 07/29/17 11:43 20 07/29/17 11:42 100.3 07/29/17 11:30 131 99/60 (73) 07/29/17 11:02 100.5 20 07/29/17 11:00 116 97/48 (64) 07/29/17 10:30 121 107/67 (80) 07/29/17 10:04 100.6 18 07/29/17 10:04 102.0 07/29/17 10:00 109 113/66 (82) Result Diagram: 07/30/17 0450 Objective Remarks GENERAL: Well-nourished, well-developed patient. Obese. CARDIOVASCULAR: Regular rate and rhythm without murmurs, gallops, or rubs. RESPIRATORY: Breath sounds equal bilaterally. No accessory muscle use. ABDOMEN/GI: Abdomen soft, non-tender, bowel sounds present. Incision: bandage Clean, dry and intact. Fundus: Firm, non-tender at umbilicus. GENITOURINARY: Light to moderate bleeding. EXTREMITIES: No cyanosis or edema, non-tender, without signs of DVT. Medications and IVs Current Medications Medications (Trade) Dose Ordered Sig/Nakul Route Start Time Stop Time Status Last Admin Lactated Ringer's 1,000 ml @ 125 mls/hr Q8H IV 07/27/17 20:30 07/29/17 12:30 Lactated Ringer's 1,000 ml @ 3,000 mls/hr BOLUS PRN IV 07/27/17 20:30 07/29/17 01:22 Sodium Chloride 500 ml @ 1,000 mls/hr BOLUS PRN IV 07/27/17 20:30 Sodium Chloride 1,000 ml @ 100 mls/hr Q10H PRN IV 07/27/17 20:30 (Xylocaine 1% Inj (50 ml)) 0.1 ml UNSCH X1 PRN I-DERMAL 07/27/17 20:30 08/03/17 20:29 (Bicitra Liq) 30 ml RIVET MACHINE OPERATOR PO 07/27/17 20:30 07/30/17 20:29 07/29/17 13:43 (fentaNYL INJ) 50 mcg Q1H PRN IV PUSH 07/27/17 20:30 07/28/17 15:13 (fentaNYL INJ) 100 mcg Q1H PRN IV PUSH 07/27/17 20:30 07/28/17 20:19 (Xylocaine 1% Inj (50 ml)) 10 ml UNSCH X1 PRN INFIL 07/27/17 20:30 08/03/17 20:29 (Muri-Lube Oil) 10 ml UNSCH PRN TOPICAL 07/27/17 20:30 (Milk Of Magnesia Liq) 30 ml QID PRN PO 07/28/17 12:30 Fentanyl/ Bupivacaine HCl 100 ml @ 0 mls/hr TITRATE EPIDURAL 07/29/17 02:00 07/29/17 08:13 Cefazolin Sodium/ Dextrose 50 ml @ 100 mls/hr Q8H IV 07/29/17 07:00 07/30/17 06:08 (Tylenol) 650 mg Q6H PRN PO 07/29/17 07:30 07/29/17 07:39 Lactated Ringer's 1,000 ml @ 100 mls/hr Q10H IV 07/29/17 19:58 07/30/17 15:57 Oxytocin 500 ml @ 100 mls/hr UNSCH X1 PRN IV 07/30/17 01:00 07/31/17 00:59 (NS Flush) 2 ml BID IV FLUSH 07/29/17 21:00 (NS Flush) 2 ml UNSCH PRN IV FLUSH 07/29/17 15:00 (Mylicon Chew) 80 mg QID PRN PO 07/29/17 15:00 (Tylenol) 650 mg Q6H PRN PO 07/29/17 15:00 (Motrin) 600 mg Q6H PRN PO 07/29/17 15:00 07/30/17 08:23 (Percocet 5-325 Mg) 1 tab Q4H PRN PO 07/29/17 15:00 (Percocet 5-325 Mg) 2 tab Q4H PRN PO 07/29/17 15:00 07/30/17 06:11 (Marlene-Colace) 2 tab Q12H PRN PO 07/29/17 15:00 (Ambien) 5 mg HS PRN PO 07/29/17 15:00 07/29/17 23:02 (M-M-R Ii Inj) 0.5 ml ONCE ONCE SQ 07/30/17 16:00 07/30/17 16:01 (Boostrix Inj) 0.5 ml ONCE ONCE IM 07/30/17 16:00 07/30/17 16:01 (Zofran Inj) 4 mg Q6H PRN IV PUSH 07/29/17 15:00 Assessment/Plan Problem List: (1) S/P primary low transverse ICD Codes: Z98.891 - History of uterine scar from previous surgery Status: Acute (2) Oligohydramnios ICD Codes: O41.00X0 - Oligohydramnios, unspecified trimester, not applicable or unspecified Status: Acute (3) Term ICD Codes: Z34.80 - Encounter for supervision of other normal , unspecified trimester Status: Acute Assessment and Plan POD#1 c/o GERD symptoms and constipation, schedule protonix and pericolace bandage intact, encouraged ambulate, shower, remove bandage anticipate D/C on POD#3 Discharge Planning routine Alta Samuel MD Jul 30, 2017 09:44
[2017-07-30] MEDS: DOCUSATE SODIUM 50 MG/SENNA 8.6 MG TAB PO SCH ×2 (10:47→23:33)
[2017-07-30] MEDS: PANTOPRAZOLE SOD 20 MG DELAYED RELEASE TAB PO SCH (10:47)
[2017-07-30] MEDS: SODIUM CHLORIDE 0.9% FLUSH 10 ML FLUSH IV FLUSH SCH ×2 (10:47→10:48)
[2017-07-30 12:00] VITALS: BP 92/63; PULSE 104; RESP 18; TEMP 98
[2017-07-30] MEDS ORDERED: DIPHTH/TETANUS/ACEL PERTUSSIS (BOOSTER) 0.5 ML VIAL/PFS IM ONE (16:00)
[2017-07-30] MEDS ORDERED: MEASLES, MUMPS, RUBELLA VACCINE 0.5 ML VIAL SQ ONE (16:00)
--- NOTE | 2017-07-30 19:33 | MP ---
cc: ALICE STOUT MD DATE OF SURGERY 07/29/17 1984 PREOPERATIVE DIAGNOSIS Term intrauterine , induction of labor with failure to progress, maternal fever and tachycardia INDICATION FOR INDUCTION Oligohydramnios. POSTOPERATIVE DIAGNOSIS Term intrauterine , induction of labor with failure to progress, maternal fever and tachycardia with direct occiput posterior PROCEDURE Low transverse segment section ANESTHESIA Epidural with Duramorph SURGEON Jareth Stout MD SAUSAGE TIER OR staff FINDINGS A living female weighing 8 pounds was delivered from direct occiput posterior without Apgars of 8 at 1 and 9 at 5. She had a good cry. Her cord pH was 7.24. Placenta was anterior low-lying. There was a mild to moderate degree of hemorrhage due to prolonged oxytocin and fever. This was addressed adequately with Hemabate, so the estimated blood loss was 800 mL. Sponge, instrument and needle count were correct. Mom and baby tolerated procedure well and both went to the recovery room stable. PROCEDURE IN DETAIL Need for section was discussed with the patient after several hours at 8-9 cm with no descent of the . The baby had significant tachycardia, but always had reasonable [id number] variability with accelerations. Maternal fever was addressed with ofirmev. After reviewing the indications for section, risks, benefits and expectations, she was taken to the operating room. Her epidural was reinforced. She was placed in the dorsal supine position with weight off the vena cava. Her Fitzgerald catheter was in place. Her sequential stockings were in place. She had received Ancef 2 grams q.4 h beginning at approximately 7:30 in the morning. She was prepped and draped in the usual sterile fashion. After assuring adequate analgesia, a Pfannenstiel incision was made with a knife and carried down through to the rectus fascia. The rectus fascia was nicked with a knife and this was carried down through the rectus fascia elliptically and taken off the rectus muscle. The rectus muscle was in the midline. The parietal peritoneum was entered sharply. A bladder flap was created off the lower uterine segment and an incision was made into the intrauterine cavity. The was found to be direct OP. She was delivered with fundal pressure. She had an excellent cry. She did not have a short cord or a nuchal cord. Delayed cord clamping was performed, then cord gas and cord blood obtained. Her cord pH was 7.24. The uterus was then exteriorized and rigorously massaged for TPH after the placenta was removed and it was cleaned thoroughly and then closed with chromic in a running interlocking fashion with a second horizontal imbricating suture. The uterus was then replaced in the abdominal cavity after copious irrigation and continued to be massaged. The Hemabate worked very well. After we did pelvic lavage, then the rectus muscle was approximated, then the fascia was closed with one Vicryl. The subcutaneous layer was closed with 3-0 plain and the skin was closed with 4-0 Vicryl on the Jayden needle. Estimated blood loss was average. Sponge, instrument and needle count were correct. She tolerated the procedure well and she went to the recovery room in stable condition. MD FELTON Menjivar/ /3:00 PM /7:08 PM MTDKatie
[2017-07-30 20:00] VITALS: BP 97/59; PULSE 100; RESP 18; TEMP 97.4; O2SAT 100
[2017-07-30] MEDS: ZOLPIDEM TARTRATE 5 MG TAB PO PRN (23:34)
[2017-07-31] MEDS: IBUPROFEN 600 MG TAB PO PRN ×3 (06:49→19:50)
[2017-07-31] MEDS: ceFAZolin 2 GM PREMIX 50 ML IV SCH (06:49)
[2017-07-31] MEDS: oxyCODONE/ACETAMINOPHEN 5 MG/325 MG TAB PO PRN ×4 (06:50→22:45)
[2017-07-31 08:00] VITALS: BP 101/63; PULSE 98; RESP 20; TEMP 98.7
[2017-07-31] MEDS: SODIUM CHLORIDE 0.9% FLUSH 10 ML FLUSH IV FLUSH SCH ×2 (08:00→19:04)
--- NOTE | 2017-07-31 08:42 | HHI.OB ---
Subjective Post Operative Day: 2 Remarks doing ok, still having some pain issues but voiding and eating well Objective Vitals/I&O Vital Signs Date Time Temp Pulse Resp B/P (MAP) Pulse Ox O2 Delivery O2 Flow Rate FiO2 07/30/17 20:00 97.4 07/30/17 20:00 100 18 97/59 (72) 07/30/17 20:00 100 07/30/17 12:00 98.0 104 18 92/63 (73) Result Diagram: 07/30/17 0456 Objective Remarks GENERAL: Well-nourished, well-developed patient. Obese. CARDIOVASCULAR: Regular rate and rhythm without murmurs, gallops, or rubs. RESPIRATORY: Breath sounds equal bilaterally. No accessory muscle use. ABDOMEN/GI: Abdomen soft, non-tender, bowel sounds present. Incision: Clean, dry and intact. Fundus: Firm, non-tender at umbilicus. GENITOURINARY: Light bleeding. EXTREMITIES: No cyanosis or edema, non-tender, without signs of DVT. Medications and IVs Current Medications Medications (Trade) Dose Ordered Sig/Nakul Route Start Time Stop Time Status Last Admin Sodium Chloride 500 ml @ 1,000 mls/hr BOLUS PRN IV 07/27/17 20:30 Sodium Chloride 1,000 ml @ 100 mls/hr Q10H PRN IV 07/27/17 20:30 (fentaNYL INJ) 50 mcg Q1H PRN IV PUSH 07/27/17 20:30 07/28/17 15:13 (fentaNYL INJ) 100 mcg Q1H PRN IV PUSH 07/27/17 20:30 07/28/17 20:19 Cefazolin Sodium/ Dextrose 50 ml @ 100 mls/hr Q8H IV 07/29/17 07:00 07/31/17 06:49 (Tylenol) 650 mg Q6H PRN PO 07/29/17 07:30 07/29/17 07:39 (NS Flush) 2 ml BID IV FLUSH 07/29/17 21:00 07/31/17 08:00 (NS Flush) 2 ml UNSCH PRN IV FLUSH 07/29/17 15:00 (Mylicon Chew) 80 mg QID PRN PO 07/29/17 15:00 (Tylenol) 650 mg Q6H PRN PO 07/29/17 15:00 (Motrin) 600 mg Q6H PRN PO 07/29/17 15:00 07/31/17 06:49 (Percocet 5-325 Mg) 1 tab Q4H PRN PO 07/29/17 15:00 (Percocet 5-325 Mg) 2 tab Q4H PRN PO 07/29/17 15:00 07/31/17 06:50 (Ambien) 5 mg HS PRN PO 07/29/17 15:00 07/30/17 23:34 (Zofran Inj) 4 mg Q6H PRN IV PUSH 07/29/17 15:00 (Marlene-Colace) 2 tab Q12H PO 07/30/17 10:00 07/30/17 23:33 (Protonix) 20 mg DAILY PO 07/30/17 10:00 07/30/17 10:47 Assessment/Plan Problem List: (1) S/P primary low transverse ICD Codes: Z98.891 - History of uterine scar from previous surgery Status: Acute (2) Oligohydramnios ICD Codes: O41.00X0 - Oligohydramnios, unspecified trimester, not applicable or unspecified Status: Acute (3) Term ICD Codes: Z34.80 - Encounter for supervision of other normal , unspecified trimester Status: Acute Assessment and Plan POD#2 continue supportive care encouraged pt to ambulate d/c planning for 08/01/17 Discharge Planning routine Alta Samuel MD Jul 31, 2017 08:41
[2017-07-31] MEDS: PANTOPRAZOLE SOD 20 MG DELAYED RELEASE TAB PO SCH (09:42)
[2017-07-31] MEDS: DOCUSATE SODIUM 50 MG/SENNA 8.6 MG TAB PO SCH ×2 (09:42→21:43)
[2017-07-31] MEDS ORDERED: POLYETHYLENE GLYCOL 17 GM PKG PO PRN (13:00)
[2017-07-31] MEDS ORDERED: SOD PHOSPHATE/SOD BIPHOSPHATE (ADULT) ENEMA 133ML RECTAL PRN (13:00)
[2017-07-31 14:09] VITALS: BP 101/63; PULSE 98; RESP 20; TEMP 98.7
[2017-07-31] MEDS ORDERED: BISACODYL 10 MG SUPP RECTAL ONE (17:30)
[2017-07-31 20:00] VITALS: BP 117/75; PULSE 105; RESP 18; TEMP 97.8
[2017-08-01] MEDS: oxyCODONE/ACETAMINOPHEN 5 MG/325 MG TAB PO PRN ×3 (05:09→11:54)
[2017-08-01] MEDS: IBUPROFEN 600 MG TAB PO PRN ×2 (05:09→11:54)
[2017-08-01 08:00] VITALS: BP 109/69; PULSE 84; RESP 16; TEMP 98.1
--- NOTE | 2017-08-01 08:56 | HHI.OB ---
Subjective Post Operative Day: 3 Remarks Doing well bottling has had result with stool softeners ready for discharge Objective Vitals/I&O Vital Signs Date Time Temp Pulse Resp B/P (MAP) Pulse Ox O2 Delivery O2 Flow Rate FiO2 08/01/17 08:00 98.1 84 16 109/69 (82) 07/31/17 20:00 97.8 105 18 07/31/17 20:00 117/75 (89) 07/31/17 14:09 98.7 98 20 101/63 Result Diagram: 07/30/17 0456 Objective Remarks GENERAL: Well-nourished, well-developed patient. Obese. CARDIOVASCULAR: Regular rate and rhythm without murmurs, gallops, or rubs. RESPIRATORY: Breath sounds equal bilaterally. No accessory muscle use. ABDOMEN/GI: Abdomen soft, non-tender, bowel sounds present. Incision: Clean, dry and intact. Fundus: Firm, non-tender at umbilicus. GENITOURINARY: Light bleeding. EXTREMITIES: No cyanosis or edema, non-tender, without signs of DVT. Medications and IVs Current Medications Medications (Trade) Dose Ordered Sig/Nakul Route Start Time Stop Time Status Last Admin Sodium Chloride 500 ml @ 1,000 mls/hr BOLUS PRN IV 07/27/17 20:30 Sodium Chloride 1,000 ml @ 100 mls/hr Q10H PRN IV 07/27/17 20:30 (fentaNYL INJ) 50 mcg Q1H PRN IV PUSH 07/27/17 20:30 07/28/17 15:13 (fentaNYL INJ) 100 mcg Q1H PRN IV PUSH 07/27/17 20:30 07/28/17 20:19 (Tylenol) 650 mg Q6H PRN PO 07/29/17 07:30 07/29/17 07:39 (NS Flush) 2 ml BID IV FLUSH 07/29/17 21:00 07/31/17 08:00 (NS Flush) 2 ml UNSCH PRN IV FLUSH 07/29/17 15:00 (Mylicon Chew) 80 mg QID PRN PO 07/29/17 15:00 (Tylenol) 650 mg Q6H PRN PO 07/29/17 15:00 (Motrin) 600 mg Q6H PRN PO 07/29/17 15:00 08/01/17 05:09 (Percocet 5-325 Mg) 1 tab Q4H PRN PO 07/29/17 15:00 (Percocet 5-325 Mg) 2 tab Q4H PRN PO 07/29/17 15:00 08/01/17 05:09 (Ambien) 5 mg HS PRN PO 07/29/17 15:00 07/30/17 23:34 (Zofran Inj) 4 mg Q6H PRN IV PUSH 07/29/17 15:00 (Marlene-Colace) 2 tab Q12H PO 07/30/17 10:00 07/31/17 09:42 (Protonix) 20 mg DAILY PO 07/30/17 10:00 07/31/17 09:42 (Fleets Enema (Adult)) 133 ml DAILY PRN RECTAL 07/31/17 13:00 07/31/17 16:17 (Miralax) 17 gm TID PRN PO 07/31/17 13:00 07/31/17 13:20 Assessment/Plan Problem List: (1) S/P primary low transverse ICD Codes: Z98.891 - History of uterine scar from previous surgery Status: Acute (2) Oligohydramnios ICD Codes: O41.00X0 - Oligohydramnios, unspecified trimester, not applicable or unspecified Status: Acute (3) Term ICD Codes: Z34.80 - Encounter for supervision of other normal , unspecified trimester Status: Acute Assessment and Plan POD#2 continue supportive care encouraged pt to ambulate d/c planning for 08/01/17 POD#3 ready for discharge RTO 1 week discussed binding breasts, engorgement discussed signs infections discussed PPD Discharge Planning routine Olivia Dumont MD Aug 01, 2017 08:56
[2017-08-01] MEDS ORDERED: OXYC1TAB63 PO (08:57)
[2017-08-01] MEDS: PANTOPRAZOLE SOD 20 MG DELAYED RELEASE TAB PO SCH (09:47)
[2017-08-01] MEDS: DOCUSATE SODIUM 50 MG/SENNA 8.6 MG TAB PO SCH (09:47)
== END 2017-08-01 14:35 | disposition home or self-care (01) | DRG 765 ==
LOC: H2EA 19:56 → H1EA 07-29 16:35
PROVIDERS: ADMIT Obstetrics & Gynecology; ATTEND Obstetrics & Gynecology
PROC: 3E033VJ Introduction of Other Hormone into Peripheral Vein, Percutaneous Approach (ICD-10-PCS; 2017-07-28)
PROC: 10907ZC Drainage of Amniotic Fluid, Therapeutic from Products of Conception, Via Natural or Artificial Opening (ICD-10-PCS; 2017-07-28)
PROC: 10D00Z1 Extraction of Products of Conception, Low, Open Approach (ICD-10-PCS; principal; 2017-07-29)
PROC: 3E0R3BZ Introduction of Anesthetic Agent into Spinal Canal, Percutaneous Approach (ICD-10-PCS; 2017-07-29)
PROC: 00HU33Z Insertion of Infusion Device into Spinal Canal, Percutaneous Approach (ICD-10-PCS; 2017-07-29)
DX: O41.03X0 Oligohydramnios, third trimester, not applicable or unspecified (principal); O72.1 Other immediate postpartum hemorrhage; O75.2 Pyrexia during labor, not elsewhere classified; O76 Abnormality in fetal heart rate and rhythm complicating labor and delivery; O32.9XX0 Maternal care for malpresentation of fetus, unspecified, not applicable or unspecified; O99.214 Obesity complicating childbirth; Z68.35 Body mass index [BMI] 35.0-35.9, adult; Z3A.40 40 weeks gestation of pregnancy; Z37.0 Single live birth; O99.89 Other specified diseases and conditions complicating pregnancy, childbirth and the puerperium; K21.9 Gastro-esophageal reflux disease without esophagitis; K59.00 Constipation, unspecified
CPT/HCPCS: 80307; 81001; 85007; 85025; 85027; 85461; 86850; 86900; 86901; 90384; J0131; J0690; J1100; J1885; J2370; J2405; J2590; J2790; J3010; J7120